=== PATIENT | female | born 1955 | race Caucasian/White ===

== ENCOUNTER 2023-05-23 15:36 | Inpatient (IN) | payer BC, OTHER ==
[~2023-05-23] VITALS: Ht 162.6 cm; Wt 95.3 kg
[2023-05-23] MEDS ORDERED: ONDANSETRON HCL/PF 4 MG/2 ML VIAL ONE (16:21)
[2023-05-23] MEDS ORDERED: MAG HYDROX/AL HYDROX/SIMETH 30 ML UDC ONE (16:21)
[2023-05-23] MEDS ORDERED: FAMOTIDINE/PF INJ 20 MG/2 ML VIAL IV ONE (16:22)
[2023-05-23] MEDS: FAMOTIDINE/PF INJ 20 MG/2 ML VIAL IV ONE (16:30)
[2023-05-23] MEDS: ONDANSETRON HCL/PF 4 MG/2 ML VIAL IVP ONE (16:30)
[2023-05-23] MEDS: MAG HYDROX/AL HYDROX/SIMETH 30 ML UDC PO ONE (16:30)
[2023-05-23 16:32] LABS: BASOPHILS % (AUTO) 0.3 % (0.0-2.0); EOSINOPHILS # (AUTO) 0.1 K/uL (0.0-0.7); EOSINOPHILS % (AUTO) 0.4 % (0.0-6.0); HEMATOCRIT 32 % (33-45); HEMOGLOBIN 9.7 g/dL (11.5-14.8); LYMPHOCYTES # (AUTO) 1.7 K/uL (0.8-4.8); LYMPHOCYTES % (AUTO) 11.9 % (20.0-44.0); MEAN CORPUSCULAR HEMOGLOBIN 24 PG (26.0-33.0); MEAN CORPUSCULAR HGB CONC 30 g/dl (31.0-36.0); MEAN CORPUSCULAR VOLUME 80 fL (82-100); MONOCYTES # (AUTO) 0.6 K/uL (0.1-1.30); MONOCYTES % (AUTO) 3.9 % (2.0-12.0); NEUTROPHILS # (AUTO) 11.8 K/uL (1.8-8.9); NEUTROPHILS % (AUTO) 83.5 % (43.0-81.0); PLATELET COUNT (AUTO) 364 K/uL (150-450); RED BLOOD CELL COUNT(AUTO) 4.03 MIL/uL (4.0-5.2); RED CELL DISTRIBUTION WIDTH 20.4 % (11.5-15.0); WHITE BLOOD COUNT (AUTO) 14.1 K/uL (4.3-11.0)
[2023-05-23 16:47] LABS: CALCIUM, SERUM 8.9 mg/dL (8.5-10.1); CARBON DIOXIDE 22 mmol/L (21-32); CHLORIDE 104 mmol/L (98-107); CREATININE 0.7 mg/dL (0.6-1.3); GLUCOSE 119 mg/dL (74-106); POTASSIUM 3.4 mmol/L (3.5-5.1); SODIUM SERUM 142 mmol/L (136-145); UREA NITROGEN, BLOOD 9 mg/dL (7-18)
[2023-05-23] MEDS ORDERED: PANTOPRAZOLE 40 MG VIAL ONE (16:58)
[2023-05-23] MEDS ORDERED: LORAZEPAM INJ 2 MG/ML VIAL ONE (17:00)
[2023-05-23] MEDS ORDERED: RISP0.5T5 PO (17:08)
[2023-05-23] MEDS ORDERED: TOPI25TA PO (17:08)
[2023-05-23] MEDS ORDERED: LISI-768 PO (17:08)
[2023-05-23] MEDS ORDERED: QUET100T PO (17:08)
[2023-05-23] MEDS ORDERED: BUPR300T52 PO (17:08)
[2023-05-23] MEDS ORDERED: SUCR1ORA15 PO (17:08)
[2023-05-23] MEDS ORDERED: FAMO40TA7 PO (17:08)
[2023-05-23] MEDS ORDERED: APIX5TAB PO (17:08)
[2023-05-23] MEDS ORDERED: GABA300C PO (17:08)
[2023-05-23] MEDS ORDERED: MIRT-119 PO (17:08)
[2023-05-23] MEDS: LORAZEPAM INJ 2 MG/ML VIAL IV ONE (17:12)
[2023-05-23] MEDS: PANTOPRAZOLE 40 MG VIAL IV ONE (17:12)
[2023-05-23] MEDS ORDERED: THIO10TA PO (17:19)
[2023-05-23] MEDS ORDERED: ASPIRIN 325 MG TABLET ONE (18:12)
[2023-05-23] MEDS ORDERED: ASPIRIN EC 325 MG TABLET.DR PO ONE (18:13)
[2023-05-23] MEDS: ASPIRIN EC 325 MG TABLET.DR PO ONE (18:18)
[2023-05-23] MEDS ORDERED: hydrALAZINE HCL IV 20 MG VIAL IV PRN (20:30)
[2023-05-23] MEDS ORDERED: ACETAMINOPHEN 325 MG TABLET PO PRN (20:30)
[2023-05-23] MEDS ORDERED: ONDANSETRON HCL/PF 4 MG/2 ML VIAL IVP PRN (20:30)
[2023-05-23] MEDS ORDERED: LORAZEPAM INJ 2 MG/ML VIAL IV PRN (20:30)
[2023-05-23 21:20] VITALS: BP 132/73; TEMP 97.8; O2SAT 98
[2023-05-23] MEDS: CEFEPIME 2 GM in IV D5W 100 ML IV SCH (21:59)
[2023-05-23] MEDS: IV NS 0.9% 1,000 ML IV SCH (22:05)
[2023-05-23] MEDS: QUETIAPINE FUMARATE 100 MG TABLET PO SCH (22:07)
[2023-05-23] MEDS: SUCRALFATE 1 G/10 ML UDC PO SCH (22:07)
[2023-05-23] MEDS: risperiDONE 1 MG TABLET PO SCH (22:07)
[2023-05-23] MEDS: GABAPENTIN 300 MG CAPSULE PO SCH (22:07)
[2023-05-23 22:20] LABS: IRON, SERUM 28 ug/dl (50-175); TOTAL IRON BINDING CAPACITY 448 ug/dl (250-450)
[2023-05-23 22:33] LABS: FERRITIN 18 ng/mL (8-388)
[2023-05-24] VITALS: BP 136/75; TEMP 98; O2SAT 98
[2023-05-24 04:00] VITALS: BP 125/62; TEMP 97.9; O2SAT 95
[2023-05-24 06:55] LABS: BASOPHILS % (AUTO) 0.5 % (0.0-2.0); EOSINOPHILS # (AUTO) 0.2 K/uL (0.0-0.7); EOSINOPHILS % (AUTO) 2.8 % (0.0-6.0); HEMATOCRIT 24 % (33-45); HEMOGLOBIN 7.5 g/dL (11.5-14.8); LYMPHOCYTES # (AUTO) 1.6 K/uL (0.8-4.8); LYMPHOCYTES % (AUTO) 27.3 % (20.0-44.0); MEAN CORPUSCULAR HEMOGLOBIN 25 PG (26.0-33.0); MEAN CORPUSCULAR HGB CONC 32 g/dl (31.0-36.0); MEAN CORPUSCULAR VOLUME 79 fL (82-100); MONOCYTES # (AUTO) 0.4 K/uL (0.1-1.30); MONOCYTES % (AUTO) 7.3 % (2.0-12.0); NEUTROPHILS # (AUTO) 3.6 K/uL (1.8-8.9); NEUTROPHILS % (AUTO) 62.1 % (43.0-81.0); PLATELET COUNT (AUTO) 289 K/uL (150-450); RED BLOOD CELL COUNT(AUTO) 3.03 MIL/uL (4.0-5.2); RED CELL DISTRIBUTION WIDTH 19.1 % (11.5-15.0); WHITE BLOOD COUNT (AUTO) 5.8 K/uL (4.3-11.0)
[2023-05-24 07:15] LABS: ALBUMIN 2.4 g/dL (3.4-5.0); BILIRUBIN,TOTAL 0.4 mg/dL (0.2-1.0); CALCIUM, SERUM 8.5 mg/dL (8.5-10.1); CREATININE 0.7 mg/dL (0.6-1.3); MAGNESIUM 2.1 mg/dL (1.8-2.4); PHOSPHORUS 4.1 mg/dL (2.5-4.9); POTASSIUM 3.4 mmol/L (3.5-5.1); TOTAL PROTEIN, SERUM 5.4 g/dL (6.4-8.2)
[2023-05-24 08:00] VITALS: BP 123/58; TEMP 97.9; O2SAT 98
[2023-05-24] MEDS: CHLORDIAZEPOXIDE HCL 25 MG CAPSULE PO SCH (08:10)
[2023-05-24] MEDS: FAMOTIDINE (20 MG) 20 MG TABLET PO SCH (08:10)
[2023-05-24] MEDS: BUPROPION XL 150 MG TAB.ER.24 PO SCH (08:11)
[2023-05-24] MEDS: LISINOPRIL (5MG) 5 MG TABLET PO SCH (08:11)
[2023-05-24] MEDS: APIXABAN 5 MG TABLET PO SCH (08:12)
[2023-05-24] MEDS ORDERED: Z GUARD REMEDY 4 OZ OINT TP PRN (09:00)
[2023-05-24] MEDS: Z GUARD REMEDY 4 OZ OINT TP SCH (10:13)
[2023-05-24] MEDS: POTASSIUM CHLORIDE 20 MEQ TAB.PRT.SR PO SCH (11:03)
[2023-05-24 12:00] VITALS: BP 139/66; TEMP 98.4; O2SAT 98
[2023-05-24 16:00] VITALS: BP 109/56; TEMP 97.8; O2SAT 98
[2023-05-24 20:00] VITALS: BP 128/59; TEMP 98.6; O2SAT 99
[2023-05-25] VITALS: BP 124/55; TEMP 97.8; O2SAT 97
[2023-05-25 04:00] VITALS: BP 110/53; TEMP 98; O2SAT 99
[2023-05-25 06:43] LABS: BASOPHILS # (AUTO) 0.1 K/uL (0.0-0.2); BASOPHILS % (AUTO) 1.7 % (0.0-2.0); EOSINOPHILS # (AUTO) 0.4 K/uL (0.0-0.7); EOSINOPHILS % (AUTO) 6.6 % (0.0-6.0); HEMATOCRIT 27 % (33-45); HEMOGLOBIN 8.3 g/dL (11.5-14.8); LYMPHOCYTES # (AUTO) 1.5 K/uL (0.8-4.8); LYMPHOCYTES % (AUTO) 24.2 % (20.0-44.0); MEAN CORPUSCULAR HEMOGLOBIN 25 PG (26.0-33.0); MEAN CORPUSCULAR HGB CONC 31 g/dl (31.0-36.0); MEAN CORPUSCULAR VOLUME 79 fL (82-100); MONOCYTES # (AUTO) 0.4 K/uL (0.1-1.30); MONOCYTES % (AUTO) 6.5 % (2.0-12.0); NEUTROPHILS # (AUTO) 3.7 K/uL (1.8-8.9); PLATELET COUNT (AUTO) 296 K/uL (150-450); RED BLOOD CELL COUNT(AUTO) 3.36 MIL/uL (4.0-5.2); RED CELL DISTRIBUTION WIDTH 19.2 % (11.5-15.0)
[2023-05-25 07:25] LABS: CALCIUM, SERUM 8.8 mg/dL (8.5-10.1); CREATININE 0.8 mg/dL (0.6-1.3); PHOSPHORUS 4.2 mg/dL (2.5-4.9); POTASSIUM 3.8 mmol/L (3.5-5.1)
[2023-05-25 08:00] VITALS: BP 112/52; TEMP 98.2; O2SAT 99
[2023-05-25] MEDS: SUCRALFATE 1 G TABLET PO SCH (08:47)
[2023-05-25] MEDS: CHLORDIAZEPOXIDE HCL 25 MG CAPSULE PO SCH (10:27)
[2023-05-25 12:00] VITALS: BP 128/51; TEMP 98.3; O2SAT 100
[2023-05-25] MEDS: NITROGLYCERIN 0.4 MG/TAB BOTTLE SL PRN (12:44)
[2023-05-25] MEDS ORDERED: NITROGLYCERIN 0.4 MG/TAB BOTTLE SL PRN (13:00)
[2023-05-25 16:00] VITALS: BP 130/60; TEMP 98.1; O2SAT 100
[2023-05-25] MEDS: DOCUSATE SODIUM 100 MG CAPSULE PO SCH (21:19)
[2023-05-25 21:41] VITALS: BP 129/71; TEMP 98.4; O2SAT 97
[2023-05-26] MEDS: POLYETHYLENE GLYCOL 3350 17 GM POWD.PACK PO PRN (00:24)
[2023-05-26 00:27] VITALS: BP 106/75; TEMP 97.6; O2SAT 96
[2023-05-26 04:23] VITALS: BP 133/69; TEMP 98.7; O2SAT 99
[2023-05-26 08:00] VITALS: BP_SYST 108; BP_SYST 138; BP_DIAS 58; BP_DIAS 91; TEMP 100.3; TEMP 97.5; O2SAT 97; O2SAT 99
[2023-05-26] MEDS: CHLORDIAZEPOXIDE HCL 25 MG CAPSULE PO SCH (09:57)
[2023-05-26 12:00] VITALS: BP 112/53; TEMP 97.7; O2SAT 95
[2023-05-26 13:23] LABS: AMPHETAMINE, URINE NEGATIVE (NEGATIVE); BARBITURATE, URINE NEGATIVE (NEGATIVE); BENZODIAZEPINE, URINE POSITIVE (NEGATIVE); CANNABINOID, URINE NEGATIVE (NEGATIVE); COCCAINE, URINE NEGATIVE (NEGATIVE); OPIATE, URINE NEGATIVE (NEGATIVE); PHENCYCLIDINE SCREEN,URINE NEGATIVE (NEGATIVE)
[2023-05-26 16:00] VITALS: BP 110/61; TEMP 97.9; O2SAT 99
[2023-05-26 20:00] VITALS: BP 120/83; TEMP 98.6; O2SAT 96
[2023-05-26] MEDS: SENNOSIDES/DOCUSATE SODIUM 1 TAB TABLET PO PRN (21:36)
[2023-05-27] VITALS: BP 123/60; TEMP 97.4; O2SAT 99
[2023-05-27 04:00] VITALS: BP 122/74; TEMP 98; O2SAT 97
[2023-05-27 08:00] VITALS: BP 115/81; TEMP 97.5; O2SAT 100
[2023-05-27] MEDS: CHLORDIAZEPOXIDE HCL 25 MG CAPSULE PO SCH (08:47)
[2023-05-27 08:48] VITALS: BP 158/93
[2023-05-27] MEDS: MUPIROCIN OINT 2% 22 GM TUBE TP SCH (09:00)
== END 2023-05-27 17:48 | DRG 897 ==
LOC: ER 15:36 → TELE1 20:41 → MEDSG1 05-27 07:49
PROVIDERS: ADMIT Internal Medicine; ATTEND Nurse Practitioner Acute Care
DX: F10.231 Alcohol dependence with withdrawal delirium (principal); M94.0 Chondrocostal junction syndrome [Tietze]; Y90.9 Presence of alcohol in blood, level not specified; E87.6 Hypokalemia; D50.9 Iron deficiency anemia, unspecified; I10 Essential (primary) hypertension; I25.10 Atherosclerotic heart disease of native coronary artery without angina pectoris; K21.9 Gastro-esophageal reflux disease without esophagitis; Z95.0 Presence of cardiac pacemaker; D72.829 Elevated white blood cell count, unspecified; F31.9 Bipolar disorder, unspecified; S90.821A Blister (nonthermal), right foot, initial encounter; X58.XXXA Exposure to other specified factors, initial encounter; Y93.9 Activity, unspecified; M21.42 Flat foot [pes planus] (acquired), left foot; M21.41 Flat foot [pes planus] (acquired), right foot; S80.12XA Contusion of left lower leg, initial encounter; S80.11XA Contusion of right lower leg, initial encounter; M21.612 Bunion of left foot; M21.611 Bunion of right foot; M19.90 Unspecified osteoarthritis, unspecified site; Z86.711 Personal history of pulmonary embolism; Z20.822 Contact with and (suspected) exposure to COVID-19; R07.89 Other chest pain; Z79.01 Long term (current) use of anticoagulants; Z95.820 Peripheral vascular angioplasty status with implants and grafts; W19.XXXA Unspecified fall, initial encounter; Y92.89 Other specified places as the place of occurrence of the external cause
CPT/HCPCS: 36415; 71045-TC; 80048-TC; 80053-TC; 82728-TC; 83540-TC; 83690-TC; 83735-TC; 84100-TC; 84484-TC; 85025-TC; 85378-TC; 93307-TC; A4223; C9113; G0378; J0692; J2060; J2405; J3490; J7030; J7050; J7060

== ENCOUNTER 2023-06-20 21:53 | Inpatient (IN) | payer BC, OTHER ==
[~2023-06-20] VITALS: Ht 157.5 cm; Wt 96.2 kg
[~2023-06-20 21:53] MED LIST: APIX5TAB PO; BUPR300T52 PO; FAMO40TA7 PO; GABA300C PO; LISI-768 PO; MIRT-119 PO; QUET100T PO; RISP0.5T5 PO; SUCR1ORA15 PO; THIO10TA PO; TOPI25TA PO
[2023-06-21 01:02] LABS: BASOPHILS % (AUTO) 0.6 % (0.0-2.0); EOSINOPHILS % (AUTO) 0.5 % (0.0-6.0); HEMATOCRIT 26 % (33-45); HEMOGLOBIN 7.9 g/dL (11.5-14.8); LYMPHOCYTES # (AUTO) 1.2 K/uL (0.8-4.8); MEAN CORPUSCULAR HEMOGLOBIN 24 PG (26.0-33.0); MEAN CORPUSCULAR HGB CONC 31 g/dl (31.0-36.0); MEAN CORPUSCULAR VOLUME 79 fL (82-100); MONOCYTES # (AUTO) 0.3 K/uL (0.1-1.30); MONOCYTES % (AUTO) 6.2 % (2.0-12.0); NEUTROPHILS # (AUTO) 3.5 K/uL (1.8-8.9); NEUTROPHILS % (AUTO) 68.7 % (43.0-81.0); PLATELET COUNT (AUTO) 188 K/uL (150-450); RED BLOOD CELL COUNT(AUTO) 3.24 MIL/uL (4.0-5.2); RED CELL DISTRIBUTION WIDTH 21.4 % (11.5-15.0); WHITE BLOOD COUNT (AUTO) 5.1 K/uL (4.3-11.0)
[2023-06-21 01:27] LABS: ALANINE AMINOTRANSFERASE 37 U/L (12-78); ALBUMIN 3.1 g/dL (3.4-5.0); ALCOHOL, BLOOD 106 mg/dL (0-10); ALKALINE PHOSPHATASE 91 U/L (46-116); ASPARTATE AMINOTRANSFERASE 25 U/L (15-37); BILIRUBIN,DIRECT 0.1 mg/dL (0.0-0.2); BILIRUBIN,TOTAL 0.2 mg/dL (0.2-1.0); CALCIUM, SERUM 9.8 mg/dL (8.5-10.1); CARBON DIOXIDE 20 mmol/L (21-32); CHLORIDE 101 mmol/L (98-107); CREATININE 1.4 mg/dL (0.6-1.3); GLUCOSE 153 mg/dL (74-106); SODIUM SERUM 140 mmol/L (136-145); TOTAL PROTEIN, SERUM 6.8 g/dL (6.4-8.2); UREA NITROGEN, BLOOD 10 mg/dL (7-18)
[2023-06-21 01:28] LABS: POTASSIUM 2.7 mmol/L (3.5-5.1)
[2023-06-21] MEDS ORDERED: POTASSIUM CL. PREMIX PERIPHER. 50 ML IV SCH (01:30)
[2023-06-21] MEDS ORDERED: POTASSIUM CHLORIDE 20 MEQ POWDER PACKET ONE (02:26)
[2023-06-21] MEDS: POTASSIUM CHLORIDE 20 MEQ POWDER PACKET PO ONE (02:35)
[2023-06-21] MEDS ORDERED: IV NS 0.9% 1,000 ML IV PRN (03:00)
[2023-06-21] MEDS ORDERED: MAGNESIUM HYDROXIDE 30 ML UDC PO PRN (03:00)
[2023-06-21] MEDS ORDERED: Z GUARD REMEDY 4 OZ OINT TP PRN (03:00)
[2023-06-21] MEDS ORDERED: NITROGLYCERIN 0.4 MG/TAB BOTTLE SL PRN (03:00)
[2023-06-21] MEDS ORDERED: ACETAMINOPHEN 325 MG TABLET PO PRN (03:00)
[2023-06-21] MEDS ORDERED: LORAZEPAM INJ 2 MG/ML VIAL IV PRN (03:00)
[2023-06-21] MEDS ORDERED: ZOLPIDEM TARTRATE 5 MG TABLET PO PRN (03:00)
[2023-06-21] MEDS ORDERED: MAG HYDROX/AL HYDROX/SIMETH 30 ML UDC PO PRN (03:00)
[2023-06-21] MEDS ORDERED: MORPHINE SULFATE INJ 2 MG/ML DISP.SYRIN IV PRN (03:00)
[2023-06-21] MEDS ORDERED: ONDANSETRON HCL/PF 4 MG/2 ML VIAL IVP PRN (03:00)
[2023-06-21] MEDS: ASPIRIN 325 MG TABLET PO ONE (03:30)
[2023-06-21] MEDS ORDERED: ASPIRIN 325 MG TABLET ONE (04:34)
[2023-06-21 06:21] VITALS: BP 153/77; TEMP 97.9; O2SAT 99
[2023-06-21 07:00] VITALS: BP 145/70; TEMP 97.5; O2SAT 100
[2023-06-21] MEDS ORDERED: FAMOTIDINE 40 MG TABLET PO SCH (09:00)
[2023-06-21] MEDS: CHLORDIAZEPOXIDE HCL 25 MG CAPSULE PO SCH (09:47)
[2023-06-21] MEDS: PANTOPRAZOLE 40 MG VIAL IV SCH (09:47)
[2023-06-21] MEDS: APIXABAN 5 MG TABLET PO SCH (09:48)
[2023-06-21] MEDS: ASPIRIN 81 MG TAB.CHEW PO SCH (09:49)
[2023-06-21] MEDS: BUPROPION XL 150 MG TAB.ER.24 PO SCH (10:11)
[2023-06-21] MEDS: TOPIRAMATE 25 MG TABLET PO SCH (10:15)
[2023-06-21] MEDS: SUCRALFATE 1 G/10 ML UDC PO SCH (10:15)
[2023-06-21] MEDS: IV NS 0.9% 1,000 ML IV PRN (10:16)
[2023-06-21 10:26] LABS: BASOPHILS % (AUTO) 0.5 % (0.0-2.0); EOSINOPHILS % (AUTO) 0.5 % (0.0-6.0); HEMATOCRIT 26 % (33-45); HEMOGLOBIN 8.1 g/dL (11.5-14.8); LYMPHOCYTES # (AUTO) 1.7 K/uL (0.8-4.8); LYMPHOCYTES % (AUTO) 24.9 % (20.0-44.0); MEAN CORPUSCULAR HEMOGLOBIN 25 PG (26.0-33.0); MEAN CORPUSCULAR HGB CONC 31 g/dl (31.0-36.0); MEAN CORPUSCULAR VOLUME 79 fL (82-100); MONOCYTES # (AUTO) 0.5 K/uL (0.1-1.30); MONOCYTES % (AUTO) 8.1 % (2.0-12.0); NEUTROPHILS # (AUTO) 4.5 K/uL (1.8-8.9); PLATELET COUNT (AUTO) 201 K/uL (150-450); RED BLOOD CELL COUNT(AUTO) 3.28 MIL/uL (4.0-5.2); RED CELL DISTRIBUTION WIDTH 21.2 % (11.5-15.0); WHITE BLOOD COUNT (AUTO) 6.8 K/uL (4.3-11.0)
[2023-06-21] MEDS ORDERED: LORAZEPAM 1 MG TABLET PO PRN (10:30)
[2023-06-21] MEDS ORDERED: LORAZEPAM INJ 2 MG/ML VIAL IVP PRN (10:30)
[2023-06-21 10:34] LABS: CALCIUM, SERUM 9.4 mg/dL (8.5-10.1); POTASSIUM 3.6 mmol/L (3.5-5.1)
[2023-06-21 10:38] LABS: BILIRUBIN,TOTAL 0.4 mg/dL (0.2-1.0); PHOSPHORUS 4.4 mg/dL (2.5-4.9); TOTAL PROTEIN, SERUM 6.8 g/dL (6.4-8.2)
[2023-06-21 10:47] LABS: MAGNESIUM 1.8 mg/dL (1.8-2.4)
[2023-06-21 11:00] LABS: THYROID STIMULATING HORMONE 0.65 uIU/mL (0.358-3.74)
[2023-06-21 11:30] VITALS: BP 152/61; TEMP 98.2; O2SAT 98
[2023-06-21] MEDS: METOPROLOL TARTRATE 50 MG TABLET PO SCH (12:07)
[2023-06-21] MEDS ORDERED: IOHEXOL-350 100 ML VIAL IV ONE (15:43)
[2023-06-21] MEDS ORDERED: IV NS 0.9% 250 ML IV ONE (15:43)
[2023-06-21] MEDS ORDERED: NITROGLYCERIN 0.4 MG/TAB BOTTLE ONE (15:58)
[2023-06-21 16:00] VITALS: BP 90/69; TEMP 98.2; O2SAT 97
[2023-06-21] MEDS: NITROGLYCERIN 0.4 MG/TAB BOTTLE SL ONE (16:00)
[2023-06-21] MEDS: FERROUS SULFATE (325 MG) 325 MG/TAB TABLET PO SCH (16:40)
[2023-06-21 19:42] VITALS: BP 115/63; TEMP 98.1; O2SAT 96
[2023-06-21] MEDS: GABAPENTIN 300 MG CAPSULE PO SCH (21:50)
[2023-06-21] MEDS: risperiDONE 1 MG TABLET PO SCH (21:51)
[2023-06-21] MEDS: QUETIAPINE FUMARATE 100 MG TABLET PO SCH (21:51)
[2023-06-21] MEDS: MIRTAZAPINE 15 MG TABLET PO SCH (21:51)
[2023-06-21] MEDS: LORAZEPAM 1 MG TABLET PO PRN (22:06)
[2023-06-21 23:51] VITALS: BP 120/60; TEMP 98; O2SAT 96
[2023-06-22] MEDS: Folic acid 1 MG in IV D5W 50 ML IV SCH (02:56)
[2023-06-22] MEDS: Thiamine 100 MG in IV D5W 50 ML IV SCH (03:33)
[2023-06-22 04:27] VITALS: BP 133/68; TEMP 98; O2SAT 100
[2023-06-22 07:30] VITALS: BP 148/83; TEMP 98.4; O2SAT 97
[2023-06-22 07:35] LABS: BASOPHILS % (AUTO) 0.6 % (0.0-2.0); EOSINOPHILS # (AUTO) 0.2 K/uL (0.0-0.7); EOSINOPHILS % (AUTO) 3.6 % (0.0-6.0); HEMATOCRIT 24 % (33-45); HEMOGLOBIN 7.5 g/dL (11.5-14.8); LYMPHOCYTES # (AUTO) 1.2 K/uL (0.8-4.8); LYMPHOCYTES % (AUTO) 24.3 % (20.0-44.0); MEAN CORPUSCULAR HEMOGLOBIN 24 PG (26.0-33.0); MEAN CORPUSCULAR HGB CONC 31 g/dl (31.0-36.0); MEAN CORPUSCULAR VOLUME 79 fL (82-100); MONOCYTES # (AUTO) 0.4 K/uL (0.1-1.30); MONOCYTES % (AUTO) 9.3 % (2.0-12.0); NEUTROPHILS % (AUTO) 62.2 % (43.0-81.0); PLATELET COUNT (AUTO) 173 K/uL (150-450); RED BLOOD CELL COUNT(AUTO) 3.07 MIL/uL (4.0-5.2); RED CELL DISTRIBUTION WIDTH 21.6 % (11.5-15.0); WHITE BLOOD COUNT (AUTO) 4.8 K/uL (4.3-11.0)
[2023-06-22 07:57] LABS: ALBUMIN 2.4 g/dL (3.4-5.0); BILIRUBIN,TOTAL 0.3 mg/dL (0.2-1.0); CALCIUM, SERUM 8.2 mg/dL (8.5-10.1); CREATININE 0.8 mg/dL (0.6-1.3); MAGNESIUM 1.8 mg/dL (1.8-2.4); PHOSPHORUS 3.6 mg/dL (2.5-4.9); POTASSIUM 3.5 mmol/L (3.5-5.1); TOTAL PROTEIN, SERUM 5.7 g/dL (6.4-8.2)
[2023-06-22] MEDS ORDERED: BUPROPION XL 150 MG TAB.ER.24 PO SCH (09:00)
[2023-06-22] MEDS: SUCRALFATE 1 G TABLET PO SCH (09:09)
[2023-06-22] MEDS: LISINOPRIL (5MG) 5 MG TABLET PO SCH (09:10)
[2023-06-22 09:34] LABS: CHOLESTEROL 146 mg/dL (<200); HDL CHOLESTEROL 86 mg/dL (40-60); LDL 43 mg/dL (0-99); TRIGLYCERIDES 79 mg/dL (30-150)
[2023-06-22 11:37] LABS: EOSINOPHIL,URINE None Seen
[2023-06-22 11:38] LABS: APPEARANCE,URINE SLIGHTLY CLOUDY (CLEAR); BILIRUBIN,URINE NEGATIVE (NEGATIVE); BLOOD, URINE NEGATIVE Ery/uL (NEGATIVE); COLOR,URINE YELLOW (YELLOW); KETONES,URINE NEGATIVE (NEGATIVE); LEUKOCYTE ESTERASE ,URINE 1+ (NEGATIVE); NITRITE, URINE POSITIVE (NEGATIVE); PROTEIN,URINE NEGATIVE (NEGATIVE); UGLUCOSE NEGATIVE (NEGATIVE); UROBILINOGEN,URINE 0.2 EU/dL (0.2)
[2023-06-22 11:42] LABS: ADD URINE CULTURE YES; BACTERIA,URINE Few /HPF (None Seen); SQUAMOUS EPITHELIAL CELL,UR Rare /HPF (None Seen)
[2023-06-22] MEDS ORDERED: ASPI-1169 PO (11:42)
[2023-06-22] MEDS ORDERED: FERR325T28 PO (11:42)
[2023-06-22] MEDS ORDERED: METO50TA16 PO (11:42)
[2023-06-22] MEDS ORDERED: CHLO25CA22 PO (11:43)
[2023-06-22 12:07] LABS: CREATININE, URINE 88.9 MG/DL (30.0-125.0); URINE TOTAL PROTEIN 17.9 mg/dL (0-11.9)
[2023-06-22] MEDS: FOLIC ACID 1 MG TABLET PO SCH (12:09)
[2023-06-22] MEDS: THIAMINE HCL 100 MG TABLET PO SCH (12:09)
[2023-06-22 16:00] VITALS: BP 119/59; TEMP 97.5; O2SAT 97
[2023-06-22 17:23] LABS: AMPHETAMINE, URINE NEGATIVE (NEGATIVE); BARBITURATE, URINE NEGATIVE (NEGATIVE); CANNABINOID, URINE NEGATIVE (NEGATIVE); COCCAINE, URINE NEGATIVE (NEGATIVE); OPIATE, URINE NEGATIVE (NEGATIVE); PHENCYCLIDINE SCREEN,URINE NEGATIVE (NEGATIVE)
[2023-06-22 18:22] LABS: BENZODIAZEPINE, URINE POSITIVE (NEGATIVE)
[2023-06-22 20:00] VITALS: BP 129/73; TEMP 98.4; O2SAT 98
[2023-06-22] MEDS: CHLORDIAZEPOXIDE HCL 25 MG CAPSULE PO SCH (22:10)
[2023-06-23 08:42] VITALS: BP 140/75; TEMP 97.5; O2SAT 96
[2023-06-23 08:52] LABS: BASOPHILS # (AUTO) 0.1 K/uL (0.0-0.2); BASOPHILS % (AUTO) 1.1 % (0.0-2.0); EOSINOPHILS # (AUTO) 0.2 K/uL (0.0-0.7); EOSINOPHILS % (AUTO) 5.2 % (0.0-6.0); HEMATOCRIT 27 % (33-45); HEMOGLOBIN 8.2 g/dL (11.5-14.8); LYMPHOCYTES # (AUTO) 1.5 K/uL (0.8-4.8); LYMPHOCYTES % (AUTO) 31.1 % (20.0-44.0); MEAN CORPUSCULAR HEMOGLOBIN 25 PG (26.0-33.0); MEAN CORPUSCULAR HGB CONC 31 g/dl (31.0-36.0); MEAN CORPUSCULAR VOLUME 80 fL (82-100); MONOCYTES # (AUTO) 0.7 K/uL (0.1-1.30); MONOCYTES % (AUTO) 15.5 % (2.0-12.0); NEUTROPHILS # (AUTO) 2.2 K/uL (1.8-8.9); NEUTROPHILS % (AUTO) 47.1 % (43.0-81.0); PLATELET COUNT (AUTO) 182 K/uL (150-450); RED BLOOD CELL COUNT(AUTO) 3.35 MIL/uL (4.0-5.2); RED CELL DISTRIBUTION WIDTH 21.4 % (11.5-15.0); WHITE BLOOD COUNT (AUTO) 4.7 K/uL (4.3-11.0)
[2023-06-23 09:11] LABS: ALBUMIN 2.7 g/dL (3.4-5.0); BILIRUBIN,TOTAL 0.2 mg/dL (0.2-1.0); CREATININE 1.1 mg/dL (0.6-1.3); POTASSIUM 3.6 mmol/L (3.5-5.1); TOTAL PROTEIN, SERUM 6.5 g/dL (6.4-8.2)
[2023-06-23] MEDS ORDERED: PANTOPRAZOLE 40 MG TABLET.DR PO SCH (09:30)
[2023-06-23] MEDS ORDERED: NITR100C6 PO (12:12)
[2023-06-23 12:38] VITALS: BP 127/62
[2023-06-24] MEDS ORDERED: PANTOPRAZOLE 40 MG TABLET.DR PO SCH (09:30)
== END 2023-06-23 15:41 | DRG 896 ==
LOC: ER 21:56 → TELE 06-21 05:25 → MED 06-22 11:47
PROVIDERS: ADMIT Internal Medicine; ATTEND Internal Medicine
PROC: 05HB33Z Insertion of Infusion Device into Right Basilic Vein, Percutaneous Approach (ICD-10-PCS; principal; 2023-06-21)
PROC: B54MZZA Ultrasonography of Right Upper Extremity Veins, Guidance (ICD-10-PCS; 2023-06-21)
DX: F10.229 Alcohol dependence with intoxication, unspecified (principal); I21.A1 Myocardial infarction type 2; I50.32 Chronic diastolic (congestive) heart failure; N17.9 Acute kidney failure, unspecified; N39.0 Urinary tract infection, site not specified; F10.239 Alcohol dependence with withdrawal, unspecified; I11.0 Hypertensive heart disease with heart failure; Y90.5 Blood alcohol level of 100-119 mg/100 ml; E87.6 Hypokalemia; D50.9 Iron deficiency anemia, unspecified; Z79.01 Long term (current) use of anticoagulants; Z79.82 Long term (current) use of aspirin; Z86.711 Personal history of pulmonary embolism; Z87.891 Personal history of nicotine dependence; Z95.0 Presence of cardiac pacemaker; F39 Unspecified mood [affective] disorder; Z20.822 Contact with and (suspected) exposure to COVID-19; R53.1 Weakness; B96.20 Unspecified Escherichia coli [E. coli] as the cause of diseases classified elsewhere
CPT/HCPCS: 36410; 36415; 70450-TC; 71045-TC; 75574; 80048-TC; 80053-TC; 80061-TC; 80076-TC; 81001; 82570-TC; 82728-TC; 82962-TC; 83735-TC; 84100-TC; 84300-TC; 84439-TC; 84443-TC; 84484-TC; 85025-TC; 87086-TC; 97116-TC; 97530-TC; A4223; A6403; C9113; G0378; G0480; J3411; J3490; J7030; J7050; J7060; Q9967